=== PATIENT | male | born 1925 | race Caucasian/White ===

== ENCOUNTER → 2016-05-25 | Outpatient (CLI) | payer MEDICARE ==
[2016-05-25 08:27] LABS: MEAN CORPUSCULAR HGB CONC 34.3 g/dL (31.0-37.0); MEAN CORPUSCULAR VOLUME 93 FL (80-100); MEAN PLATELET VOLUME 10.9 FL (6.0-9.5); PLATELET COUNT 133 10^3uL (150-450); WHITE BLOOD COUNT 5.07 10^3uL (4.0-11.0)
[2016-05-25 09:26] LABS: BAND NEUTROPHILS % 2 % (0-6); EOSINOPHILS % 4 % (0-4); LYMPHOCYTES # 0.7 #; MONOCYTES # 1.1 #; MONOCYTES % 21 % (3-11); RBC MORPH NORMAL (NORMAL); SEGMENTED NEUTROPHILS % 59 % (51-67); TOTAL CELLS COUNTED 100
[2016-05-25 09:45] LABS: ALBUMIN 3.7 g/dL (3.4-5.0); ANION GAP 15.5 MEQ/L (3-15); CALCULATED IONIZED CALCIUM 4.2 mg/dL (3.8-4.6); TOTAL PROTEIN 7.2 g/dL (6.4-8.5)
== END ==
LOC: LAB 08:09
PROVIDERS: ATTEND Internal Medicine
DX: Z00.00 Encounter for general adult medical examination without abnormal findings (principal); D64.9 Anemia, unspecified; G64 Other disorders of peripheral nervous system; I25.10 Atherosclerotic heart disease of native coronary artery without angina pectoris; E78.00 Pure hypercholesterolemia, unspecified
CPT/HCPCS: 36415; 80053; 80061; 84443; 85025